=== PATIENT | male | born 1960 | race Caucasian/White ===

== ENCOUNTER → 2021-05-04 09:39 | Outpatient (CLI) | payer OTHER, SELFPAY ==
--- NOTE | ~2021-05-04 | MR_ITS ---
EXAMINATION: MRA brain wo con EXAM DATE: 05/04/2021 10:27 INDICATION: Arm numbness . TECHNIQUE: 3-D [id number] MRA of the intracranial arteries was performed without contrast. Correl ation is made to brain MRI same date. FINDINGS: There is normal flow related signal seen within the vertebral, basilar and internal carotid arteries. There is no proximal stenosis. There are no aneurysms identified. Both A1 and P1 segments are pat ent. Flow in the cerebral arteries is symmetric. IMPRESSION: Normal MRA brain exam. Reviewed, dictated and finalized at location A. RNET RETAILER IMPRESSION: Normal MRA brain exam.
--- NOTE | ~2021-05-04 | MR_ITS ---
EXAMINATION: MR brain/brain stem wo/w con EXAM DATE: 05/04/2021 10:36 INDICATION: Arm numbness. Generalized headaches. TECHNIQUE: Magnetic resonance imaging (MRI) of the brain/brain stem obtained without contrast. Sagit lina T1, axial diffusion, gradient echo (T2*), T1, T2, FLAIR sequences obtained. Patient was then inj ected with 18 cc intravenous Multihance contrast. Axial and coronal postcontrast T1 weighted sequence s obtained. There is no prior study for comparison. FINDINGS: There are no areas of restricted diffusion to suggest acute infarction. There is no acute hemorrhage seen on the T2*, a hemosiderin sensitive sequence. No intraparenchymal brain mass. The ve ntricles are normal in size. There are no extra-axial collections. Flow voids are seen in the cereb ral arteries on the T2-weighted sequences consistent with their expected patency. The orbits are unr emarkable. Soft tissue is unremarkable. There are no areas of abnormal enhancement on the postcont rast images. IMPRESSION: 1. Normal brain MRI examination. Reviewed, dictated and finalized at location A. STRIAL MACHINERY MECHANIC
[2021-05-04 10:07] LABS: Estimated Glomerular Filt Rate > 60
== END ==
PROVIDERS: PCP Family Medicine; Visit Provider Family Medicine
DX: R20.0 Anesthesia of skin (principal)
CPT/HCPCS: 70544; 70553; A9577